=== PATIENT | female | born 1985 | race Caucasian/White ===

== ENCOUNTER 2016-05-01 20:13 | Emergency (ER) | payer OTHER ==
[2016-05-01] MEDS ORDERED: Ketorolac INJ* 60 MG/2 ML VIAL IM ONE (20:39)
[2016-05-01 20:53] LABS: Hematocrit 42 % (35-47); Hemoglobin 14.3 g/dl (12.0-16.0); Mean Corpuscular HGB Conc 34 g/dl (31-36); Mean Corpuscular Hemoglobin 30 pg (27-31); Mean Corpuscular Volume 89 fL (80-97); Mean Platelet Volume 8 um3 (7.4-10.4); Red Blood Count 4.72 10^6/ul (4.0-5.4); Red Cell Distribution Width 13 % (10.5-15); White Blood Count 6.7 10^3/ul (3.5-10.8)
--- NOTE | 2016-05-01 21:02 | ED ---
Papo Tay SooYoung, scribed for Keshawn Aguilar MD on 05/01/16 at 2036 . Shortness of Breath - HPI Summary HPI Summary: A 31 y/o F presents to ED with c/o intermittent episodes of R-sided CP onset last night. Pt cannot recall number of episodes, but says they last a few minutes each. Pain radiates across back and in-between shoulder blades. Radiating pain described as tightness. Aggravating factors: deep breaths. She notes having had similar sx in the past: she collapsed at work and was admitted to hospital for three days. Her PCP says her blood pressure is high, but has not provided medication. Took aspirin today. NKA. Pt is a smoker. - History of Current Complaint Chief Complaint: EDShortnessOfBreath Time Seen by Provider: 05/01/16 20:29 Hx Obtained From: Patient Onset/Duration: Still Present Timing: Intermittent Episodes Lasting: - minutes Current Severity: Moderate - rates as 6 out of 10 Aggrevating Factors: Deep Breaths - Allergy/Home Medications Allergies/Adverse Reactions: Allergies Allergy/AdvReac Type Severity Reaction Status Date / Time No Known Allergies Allergy Verified 09/19/14 19:53 PMH/Surg Hx/FS Hx/Imm Hx Previously Healthy: No Cardiovascular History: Reports: Hx Hypertension, Other Cardiovascular Problems/ Disorders - pos: MVP - Surgical History Surgery Procedure, Year, and Place: Infectious Disease History: No Infectious Disease History: Denies: Traveled Outside the [place] in Last 30 Days - Family History Known Family History: Negative: Cardiac Disease, Hypertension, Diabetes - Social History Occupation: Unemployed Lives: With Family Alcohol Use: Occasionally Hx Substance Use: Yes Substance Use Type: Reports: Marijuana, Other Substance Use Comment - Amount & Last Used: HAS USED BATH SALTS Hx Tobacco Use: Yes Smoking Status (MU): Heavy Every Day Tobacco Smoker Type: Cigarettes Amount Used/How Often: 1 PPD Review of Systems Negative: Fever Positive: Chest Pain Positive: Other - tightness across back, at shoulders All Other Systems Reviewed And Are Negative: Yes Physical Exam Triage Information Reviewed: Yes Vital Signs On Initial Exam: Initial Vitals Temp Pulse Resp BP Pulse Ox 97.8 F 87 18 138/94 100 05/01/16 20:16 05/01/16 20:16 05/01/16 20:16 05/01/16 20:16 05/01/16 20:16 Vital Signs Reviewed: Yes Appearance: Positive: Well-Appearing, No Pain Distress, Well-Nourished Skin: Positive: Warm Eyes: Positive: EOMI, SHANA ENT: Positive: Hearing grossly normal Neck: Positive: Supple Respiratory/Lung Sounds: Positive: Clear to Auscultation, Breath Sounds Present Cardiovascular: Positive: RRR. Negative: Murmur Abdomen Description: Positive: Nontender, Soft Bowel Sounds: Positive: Present Musculoskeletal: Positive: Strength/ROM Intact Neurological: Positive: Sensory/Motor Intact, Alert, Oriented to Person Place, Time Diagnostics - Vital Signs Vital Signs Temp Pulse Resp BP Pulse Ox 05/01/16 20:16 97.8 F 87 18 138/94 100 - Laboratory Lab Results: Lab Results 05/01/16 Range/Units 20:46 WBC 6.7 (3.5-10.8) 10^3/ul RBC 4.72 (4.0-5.4) 10^6/ul Hgb 14.3 (12.0-16.0) g/dl Hct 42 (35-47) % MCV 89 (80-97) fL MCH 30 (27-31) pg MCHC 34 (31-36) g/dl RDW 13 (10.5-15) % Plt Count 216 (150-450) 10^3/ul MPV 8 (7.4-10.4) um3 Neut % (Auto) 53.3 (38-83) % Lymph % (Auto) 33.8 (25-47) % [place] % (Auto) 9.8 H (1-9) % Eos % (Auto) 1.8 (0-6) % Baso % (Auto) 1.3 (0-2) % Absolute Neuts (auto) 3.6 (1.5-7.7) 10^3/ul Absolute Lymphs (auto) 2.3 (1.0-4.8) 10^3/ul Absolute Monos (auto) 0.7 (0-0.8) 10^3/ul Absolute Eos (auto) 0.1 (0-0.6) 10^3/ul Absolute Basos (auto) 0.1 (0-0.2) 10^3/ul Absolute Nucleated RBC 0 10^3/ul Nucleated RBC % 0 Result Diagrams: 05/01/16 20:46 05/01/16 20:46 Lab Statement: Any lab studies that have been ordered have been reviewed, and results considered in the medical decision making process. - Radiology CXR Xray Interpretation: No Acute Changes - IMPRESSION: No evidence for active cardiopulmonary disease. Radiology Interpretation Completed By: Radiologist - EKG 2033 Cardiac Rate: NL EKG Rhythm: Sinus Rhythm Re-Evaluation - Re-Evaluation 1 Re-Evaluation Time: 22:54 Change: Improved Course/Dx - Course Assessment/Plan: MDM: A 31 y/o F presents with intermittent episodes of chest pain, lasting minutes, first onset last night. Aggravating factors include deep breaths. Pt is a smoker. Pain radiates to back and across shoulders. Bedside EKG showed NSR. Pt given Toradol. CXR had no acute findings. Pt felt better upon re-eval. Will D/C home. - Diagnoses Provider Diagnoses: Viral syndrome Discharge - Discharge Plan Condition: Stable Disposition: HOME Patient Education Materials: Viral Syndrome (ED) Referrals: Non Staff,Doctor [Primary Care Provider] - [facility] [place] PHYSICIAN REFERRAL [Outside] Additional Instructions: Please return to ED with new or worsening symptoms. Maintain your health with rest, plenty of fluids and Tylenol as needed. Follow-up with your primary care provided as needed. The documentation as recorded by the Papo montaño SooYoung accurately reflects the service I personally performed and the decisions made by me, Keshawn Aguilar MD.
[2016-05-01 21:09] LABS: Anion Gap 5 mmol/L (2-11); BUN/Creatinine Ratio 22.4 (8-20); Blood Urea Nitrogen 15 mg/dL (6-24); CO2 Carbon Dioxide 26 mmol/L (22-32); Calcium 9.6 mg/dL (8.6-10.3); Chloride 106 mmol/L (101-111); EGFR African American 132.9 (>60); EGFR Non-African American 103.3 (>60); Glucose 86 mg/dL (70-100); Potassium 3.9 mmol/L (3.5-5.0); Sodium 137 mmol/L (133-145)
[2016-05-01] MEDS ORDERED: Ketorolac INJ* 30 MG/ML 1 ML VIAL IV PUSH ONE (21:13)
--- NOTE | 2016-05-01 21:45 | RAD ---
INDICATION: Chest pain. COMPARISON: Comparison is made with a prior study from April 20, 2014. TECHNIQUE: Dual-energy PA and lateral views of the chest were obtained. FINDINGS: The heart is within normal limits in size. Mediastinal and hilar contours appear within normal limits. The lungs are clear. No pneumothorax or pleural effusion is seen. IMPRESSION: NO EVIDENCE FOR ACTIVE CARDIOPULMONARY DISEASE.
[2016-05-01 23:22] VITALS: BP 123/65
== END 2016-05-01 23:15 | disposition home or self-care (01) ==
LOC: ED 20:13
DX: B34.9 Viral infection, unspecified (principal); F17.210 Nicotine dependence, cigarettes, uncomplicated
CPT/HCPCS: 36415; 71020; 80048; 84702; 85025; 93005; 96372; 96374; 99283; J1885

== ENCOUNTER 2017-03-26 23:28 | Emergency (ER) | payer OTHER ==
[2017-03-26] MEDS ORDERED: Albuterol/Ipratropium NEB.SOL* Albuterol 2.5 MG/Ipratropium 0.5 MG 3 ML INH ONE (23:52)
[2017-03-27 00:13] LABS: ABS Basophils 0.1 10^3/ul (0-0.2); ABS Eosinophils 0.1 10^3/ul (0-0.6); ABS Lymphocytes 2.3 10^3/ul (1.0-4.8); ABS Monocytes 0.7 10^3/ul (0-0.8); ABS Neutrophils 4.1 10^3/ul (1.5-7.7); ABS Nucleated RBC 0 10^3/ul; Hematocrit 39 % (35-47); Hemoglobin 13.3 g/dl (12.0-16.0); Lymphocyte % 31.1 % (25-47); Mean Corpuscular HGB Conc 34 g/dl (31-36); Mean Corpuscular Hemoglobin 31 pg (27-31); Mean Corpuscular Volume 91 fL (80-97); Mean Platelet Volume 7 um3 (7.4-10.4); Nucleated Red Blood Cells % 0; Platelet Count 222 10^3/ul (150-450); Red Blood Count 4.26 10^6/ul (4.0-5.4); Red Cell Distribution Width 14 % (10.5-15); White Blood Count 7.3 10^3/ul (3.5-10.8)
[2017-03-27 00:34] LABS: EGFR Non-African American 93.6 (>60)
[2017-03-27 00:42] LABS: INR 0.94 (0.77-1.02)
[2017-03-27] MEDS ORDERED: Albuterol/Ipratropium NEB.SOL* Albuterol 2.5 MG/Ipratropium 0.5 MG 3 ML INH ONE (01:03)
[2017-03-27] MEDS ORDERED: predniSONE TAB* 20 MG PO ONE (01:03)
--- NOTE | 2017-03-27 04:25 | ED ---
Teresa Tay Gabriel, scribed for Frank Mesa on 03/26/17 at 2356 . HPI Chest Pain - HPI Summary HPI Summary: This patient is a 31 year old F presenting to [facility] with a chief complaint of CP since 6 days ago. The patient rates the pain 7/10 in severity and describes it as tightness. She states the pain radiates into her upper back and down both arms. Patient denies productive cough. Patient has a history of a sticky heart valve. - History of Current Complaint Chief Complaint: EDChestWallPain Time Seen by Provider: 03/26/17 23:48 Hx Obtained From: Patient Hx Last Menstrual Period: 2 WEEKS AGO Onset/Duration: Started Days Ago - 6, Still Present Timing: Intermittent Initial Severity: Mild Current Severity: Mild Pain Intensity: 7 Pain Scale Used: 0-10 Numeric Chest Pain Location: Mid Sternal Chest Pain Radiates: Yes Chest Pain Radiates To:: Back, Arm - bilateral Character: Tightness Aggravating Factor(s): Nothing Alleviating Factor(s): Nothing - Allergy/Home Medications Allergies/Adverse Reactions: Allergies Allergy/AdvReac Type Severity Reaction Status Date / Time No Known Allergies Allergy Verified 09/19/14 19:53 PMH/Surg Hx/FS Hx/Imm Hx Endocrine/Hematology History: Denies: Hx Diabetes Cardiovascular History: Reports: Hx Hypertension, Other Cardiovascular Problems/ Disorders - pos: MVP Respiratory History: Denies: Hx Asthma, Hx Chronic Obstructive Pulmonary Disease (COPD) - Surgical History Surgery Procedure, Year, and Place: Infectious Disease History: No Infectious Disease History: Denies: Traveled Outside the [place] in Last 30 Days - Family History Known Family History: Negative: Cardiac Disease, Hypertension, Diabetes - Social History Alcohol Use: Occasionally Hx Substance Use: Yes Substance Use Type: Reports: Marijuana, Other Substance Use Comment - Amount & Last Used: HAS USED BATH SALTS Hx Tobacco Use: Yes Smoking Status (MU): Heavy Every Day Tobacco Smoker Type: Cigarettes Amount Used/How Often: 1 PPD Review of Systems Positive: Chest Pain Negative: Cough Positive: Other - pain in upper back and down both arms All Other Systems Reviewed And Are Negative: Yes Physical Exam - Summary Physical Exam Summary: Appearance: Well appearing, no pain distress Skin: warm, dry, reflects adequate perfusion Head/face: normal Eyes: EOMI, SHANA ENT: normal Neck: supple, non-tender Respiratory: CTA, breath sounds present Cardiovascular: RRR, pulses symmetrical Abdomen: non-tender, soft Bowel: present Musculoskeletal: normal, strength/ROM intact Neuro: normal, sensory motor intact, A&Ox3 Triage Information Reviewed: Yes Vital Signs On Initial Exam: Initial Vitals Temp Pulse Resp BP Pulse Ox 97.0 F 86 16 133/83 100 03/26/17 23:30 03/26/17 23:30 03/26/17 23:30 03/26/17 23:30 03/26/17 23:30 Vital Signs Reviewed: Yes Diagnostics - Vital Signs Vital Signs Temp Pulse Resp BP Pulse Ox 03/26/17 23:30 97.0 F 86 16 133/83 100 - Laboratory Lab Results: Lab Results 03/27/17 03/27/17 03/27/17 Range/Units 00:04 00:04 00:04 WBC 7.3 (3.5-10.8) 10^3/ul RBC 4.26 (4.0-5.4) 10^6/ul Hgb 13.3 (12.0-16.0) g/dl Hct 39 (35-47) % MCV 91 (80-97) fL MCH 31 (27-31) pg MCHC 34 (31-36) g/dl RDW 14 (10.5-15) % Plt Count 222 (150-450) 10^3/ul MPV 7 L (7.4-10.4) um3 Neut % (Auto) 56.7 (38-83) % Lymph % (Auto) 31.1 (25-47) % [place] % (Auto) 9.4 H (1-9) % Eos % (Auto) 2.0 (0-6) % Baso % (Auto) 0.8 (0-2) % Absolute Neuts (auto) 4.1 (1.5-7.7) 10^3/ul Absolute Lymphs (auto) 2.3 (1.0-4.8) 10^3/ul Absolute Monos (auto) 0.7 (0-0.8) 10^3/ul Absolute Eos (auto) 0.1 (0-0.6) 10^3/ul Absolute Basos (auto) 0.1 (0-0.2) 10^3/ul Absolute Nucleated RBC 0 10^3/ul Nucleated RBC % 0 INR (Anticoag Therapy) 0.94 (0.77-1.02) APTT 34.5 (26.0-36.3) seconds D-Dimer, Quantitative < 200 (Less Than 230) ng/mL Sodium (133-145) mmol/L Potassium (3.5-5.0) mmol/L Chloride (101-111) mmol/L Carbon Dioxide (22-32) mmol/L Anion Gap (2-11) mmol/L BUN (6-24) mg/dL Creatinine (0.51-0.95) mg/dL Est GFR ( Amer) (>60) Est GFR (Non-Af Amer) (>60) BUN/Creatinine Ratio (8-20) Glucose (70-100) mg/dL Calcium (8.6-10.3) mg/dL Total Bilirubin (0.2-1.0) mg/dL AST (13-39) U/L ALT (7-52) U/L Alkaline Phosphatase (34-104) U/L Troponin I (<0.04) ng/mL B-Natriuretic Peptide 14 ( - 100) pg/mL Total Protein (6.4-8.9) g/dL Albumin (3.2-5.2) g/dL Globulin (2-4) g/dL Albumin/Globulin Ratio (1-3) Beta HCG, Quant mIU/mL 03/27/17 03/27/17 Range/Units 00:04 03:15 WBC (3.5-10.8) 10^3/ul RBC (4.0-5.4) 10^6/ul Hgb (12.0-16.0) g/dl Hct (35-47) % MCV (80-97) fL MCH (27-31) pg MCHC (31-36) g/dl RDW (10.5-15) % Plt Count (150-450) 10^3/ul MPV (7.4-10.4) um3 Neut % (Auto) (38-83) % Lymph % (Auto) (25-47) % [place] % (Auto) (1-9) % Eos % (Auto) (0-6) % Baso % (Auto) (0-2) % Absolute Neuts (auto) (1.5-7.7) 10^3/ul Absolute Lymphs (auto) (1.0-4.8) 10^3/ul Absolute Monos (auto) (0-0.8) 10^3/ul Absolute Eos (auto) (0-0.6) 10^3/ul Absolute Basos (auto) (0-0.2) 10^3/ul Absolute Nucleated RBC 10^3/ul Nucleated RBC % INR (Anticoag Therapy) (0.77-1.02) APTT (26.0-36.3) seconds D-Dimer, Quantitative (Less Than 230) ng/mL Sodium 137 (133-145) mmol/L Potassium 3.5 (3.5-5.0) mmol/L Chloride 106 (101-111) mmol/L Carbon Dioxide 24 (22-32) mmol/L Anion Gap 7 (2-11) mmol/L BUN 13 (6-24) mg/dL Creatinine 0.73 (0.51-0.95) mg/dL Est GFR ( Amer) 120.4 (>60) Est GFR (Non-Af Amer) 93.6 (>60) BUN/Creatinine Ratio 17.8 (8-20) Glucose 84 (70-100) mg/dL Calcium 9.1 (8.6-10.3) mg/dL Total Bilirubin 0.30 (0.2-1.0) mg/dL AST 9 L (13-39) U/L ALT 11 (7-52) U/L Alkaline Phosphatase 40 (34-104) U/L Troponin I 0.00 0.00 (<0.04) ng/mL B-Natriuretic Peptide ( - 100) pg/mL Total Protein 6.4 (6.4-8.9) g/dL Albumin 4.2 (3.2-5.2) g/dL Globulin 2.2 (2-4) g/dL Albumin/Globulin Ratio 1.9 (1-3) Beta HCG, Quant < 0.60 mIU/mL Result Diagrams: 03/27/17 00:04 03/27/17 00:04 Lab Statement: Any lab studies that have been ordered have been reviewed, and results considered in the medical decision making process. - Radiology CXR Radiology Interpretation Completed By: Radiologist - no acute disease - EKG 00:20 Cardiac Rate: Tachycardia EKG Rhythm: Sinus Tachycardia - at 108 BPM EKG Interpretation: non- specific ST/T wave changes Chest Pain Course/Dx - Course Assessment/Plan: This patient is a 31 year old F presenting to [facility] with a chief complaint of CP since 6 days ago. The patient rates the pain 7/10 in severity and describes it as tightness. She states the pain radiates into her upper back and down both arms. CXR reveals, no acute disease. Bloodwork was obtained. In the ED course the patient was given duoneb and deltasone. Patient will be discharged and follow up from Dr. Santana. The patient is agreeable with this plan. - Chest Pain Differential Diagnosis/HQI/PQRI: Acute WA, CHF, Lower Respiratory Infection, Other: - anxeity reaction - Diagnoses Provider Diagnoses: Atypical chest pain, Bronchospasm Discharge - Discharge Plan Condition: Stable Disposition: HOME Prescriptions: Albuterol HFA INHALER* [Ventolin HFA Inhaler*] 2 puff INH TID #1 mdi Prednisone [Deltasone] 40 mg PO ONCE #4 tab Patient Education Materials: Chest Pain (ED) Referrals: Non Staff,Doctor [Primary Care Provider] - Hazel Santana MD [Medical Doctor] - 3 Days Additional Instructions: RETURN TO THE EMERGENCY DEPARTMENT FOR CHANGING OR WORSENING SYMPTOMS The documentation as recorded by the Teresa montaño Gabriel accurately reflects the service I personally performed and the decisions made by Moshe garcia Emmanuel.
[2017-03-27 04:30] VITALS: BP 102/59
--- NOTE | 2017-03-27 10:33 | RAD ---
INDICATION: Chest pain and tightness x6 days COMPARISON: Most recent comparison chest x-ray is dated May 01, 2016 TECHNIQUE: Single AP portable view of the chest was obtained. FINDINGS: Image quality is compromised due to the relative inferiority of a portable chest x-ray. The heart and mediastinum exhibit normal size and contour. The lungs are grossly clear. There is no evidence of a large pleural effusion. Visualized bones are normal for the patient's age. IMPRESSION: No radiographic evidence for acute cardiopulmonary abnormality on this portable chest x-ray.
== END 2017-03-27 04:32 | disposition home or self-care (01) ==
LOC: ED 23:28
DX: R07.89 Other chest pain (principal); J98.01 Acute bronchospasm; Z86.79 Personal history of other diseases of the circulatory system; F17.210 Nicotine dependence, cigarettes, uncomplicated
CPT/HCPCS: 36415; 71010; 80053; 83880; 84484; 84702; 85025; 85379; 85610; 85730; 93005; 94640; 99283; A9270-GY; J7512

== ENCOUNTER 2017-04-21 07:29 | Emergency (ER) | payer OTHER ==
[2017-04-21 07:42] VITALS: BP 127/79
--- NOTE | 2017-04-21 08:03 | UC ---
Dizzy HPI HPI Summary: Starting today she has had a feeling of imbalance and nausea. No weakness or worsening palpitations. She is on clindamycin for dental infection and this seems to be getting better in terms of pain. She had right neck pain and trouble moving her head and this has resolved. No fever or chills. She has been on clindamycin before without side effects. - History Of Current Complaint Chief Complaint: UCGeneralIllness Stated Complaint: DIZZY,NAUSEA,PALE Time Seen by Provider: 04/21/17 07:48 Hx Obtained From: Patient Hx Last Menstrual Period: 03/29/17 ?: No - LMP within 30 days. Onset/Duration: Gradual Onset, Lasting Hours Timing: Constant Severity Initially: Mild Severity Currently: Mild Pain Intensity: 0 Character: Room Spinning, Dizzy Aggravating Factor(s): Nothing Alleviating Factor(s): Nothing Associated Signs And Symptoms: Positive: Nausea. Negative: Palpitations - she has chronic intemittent palptiations but this is not worse than normal. - Allergies/Home Medications Allergies/Adverse Reactions: Allergies Allergy/AdvReac Type Severity Reaction Status Date / Time No Known Allergies Allergy Verified 04/21/17 07:42 PMH/Surg Hx/FS Hx/Imm Hx Previously Healthy: No - dental infection. - Surgical History Surgical History: Yes Surgery Procedure, Year, and Place: - Family History Known Family History: Negative: Cardiac Disease, Hypertension, Diabetes - Social History Occupation: Employed Full-time Alcohol Use: Occasionally Substance Use Type: Marijuana, Other Substance Use Comment - Amount & Last Used: HAS USED BATH SALTS Smoking Status (MU): Heavy Every Day Tobacco Smoker Type: Cigarettes Amount Used/How Often: 1 PPD Household Exposure Type: Cigarettes Review of Systems Gastrointestinal: Nausea Neurological: Other All Other Systems Reviewed And Are Negative: Yes Physical Exam Triage Information Reviewed: Yes Appearance: Well-Appearing, No Pain Distress, Well-Nourished Vital Signs: Initial Vital Signs Temp 98.5 F 04/21/17 07:35 Pulse 87 04/21/17 07:35 Resp 18 04/21/17 07:35 BP 127/79 04/21/17 07:35 Pulse Ox 100 04/21/17 07:35 Vital Signs Reviewed: Yes Eyes: Positive: Conjunctiva Clear ENT: Positive: Normal ENT inspection, Pharynx normal, Nasal congestion, TMs normal, Uvula midline. Negative: TM bulging, TM dull, TM red, Tonsillar swelling, Tonsillar exudate, Trismus Neck: Positive: Supple, Nontender, No Lymphadenopathy Respiratory: Positive: Lungs clear, Normal breath sounds, No respiratory distress, No accessory muscle use Cardiovascular: Positive: No Murmur, Pulses Normal, Brisk Capillary Refill Abdomen Description: Positive: Soft. Negative: Distended, Guarding Musculoskeletal: Positive: ROM Intact, No Edema Neurological: Positive: Alert, Muscle Tone Normal, Other: - She ambulates with narrow based coordinated gait and no nystagmus.. Negative: Fatigued, Lethargic Psychological: Positive: Age Appropriate Behavior Skin: Negative: rashes Dizzy Course/Dx - Differential Dx/Diagnosis Provider Diagnoses: vertigo Discharge - Discharge Plan Condition: Good Disposition: HOME Prescriptions: Meclizine HCl [Meclizine 25] 25 mg PO TID PRN #21 tab PRN Reason: Dizziness Ondansetron TAB* [Zofran 4 MG Tab*] 4 mg PO Q6H PRN #12 tab PRN Reason: Nausea Patient Education Materials: Vertigo (ED), Motion Sickness (ED), Dizziness (ED) Forms: *Work Release Referrals: Non Staff,Doctor [Primary Care Provider] -
== END 2017-04-21 08:00 | disposition home or self-care (01) ==
LOC: UCCORT 07:29
DX: R42 Dizziness and giddiness (principal); R11.0 Nausea; K04.7 Periapical abscess without sinus; F12.90 Cannabis use, unspecified, uncomplicated; F17.210 Nicotine dependence, cigarettes, uncomplicated
CPT/HCPCS: 99212; G0463

== ENCOUNTER 2017-11-04 11:52 | Emergency (ER) | payer OTHER ==
--- NOTE | 2017-11-04 12:31 | UC ---
Nausea/Vomiting/Diarrhea HPI - HPI Summary HPI Summary: pt presents with with same sx. Pt ate left over chicken a t8pm last night night. woke at3am with n/v/d. Pt had 5-6 episodes of diarrhea -no blood, no black. Pt had 4 episodes of vomiting - nonbilious - last episode [employer]. pt with abdominal cramping. No fever, chills. No rash. No caro, vision changes. No concern for . Pt missed work today. Pt's medications reviewed this visit - History of Current Complaint Stated Complaint: VOMITING,STOMACH ACHE Time Seen by Provider: 11/04/17 12:26 Hx Obtained From: Patient Hx Last Menstrual Period: yesterday ?: No Onset/Duration: Sudden Onset - Allergies/Home Medications Allergies/Adverse Reactions: Allergies Allergy/AdvReac Type Severity Reaction Status Date / Time No Known Allergies Allergy Verified 11/04/17 12:33 PMH/Surg Hx/FS Hx/Imm Hx Previously Healthy: Yes - Surgical History Surgical History: Yes Surgery Procedure, Year, and Place: - Family History Known Family History: Negative: Cardiac Disease, Hypertension, Diabetes - Social History Occupation: Employed Full-time Lives: With Family Alcohol Use: Daily Alcohol Amount: 1/4 bottle vodka daily Substance Use Type: None Substance Use Comment - Amount & Last Used: HAS USED BATH SALTS Smoking Status (MU): Heavy Every Day Tobacco Smoker Type: Cigarettes Amount Used/How Often: 1 PPD Household Exposure Type: Cigarettes - Immunization History Vaccination Up to Date: Yes Review of Systems Constitutional: Negative Gastrointestinal: Abdominal Pain, Vomiting, Diarrhea, Nausea All Other Systems Reviewed And Are Negative: Yes Physical Exam - Summary Physical Exam Summary: Vital Signs Reviewed: Yes A+Ox3, no distress, tired appearing Eyes: Conjunctiva Clear, SHANA. EOM intact and full ENT: Hearing grossly normal TM x 2 clear, mmoist, uvula midline, no exudate, no erythema Neck: Positive: Supple Respiratory: Positive: No respiratory distress, No accessory muscle use + CTA throughout no w/r Cardiovascular: RRR nl s1, s2 no m/r CBT <2 sec abd soft + BS nd no guarding, no distension, mild diffuse discomfort no guarding, no reboud Musculoskeletal Exam: CRAIG x 4 without difficulty Strength Intact, ROM Intact Neurological: Positive: Alert, + sensation throughout Psychological: Positive: Normal Response To Family Skin: Positive: no rash, no ecchymosis Triage Information Reviewed: Yes Naus/Vom/Diarrhea Course/Dx - Course Course Of Treatment: Pt presets wth n/v/d since 3am - starting 5 hours after eating left over chicken. with same sx Pt vss, non toxic apeparing. will trial zofran and clears. clear to bland. work note. return precautions - Differential Dx/Diagnosis Provider Diagnoses: nause, vomiting and diarrhea Condition At Discharge: Stable Discharge - Sign-Out/Discharge Documenting (check all that apply): Patient Departure - Discharge Plan Condition: Stable Disposition: HOME Patient Education Materials: Acute Nausea and Vomiting (ED), Acute Diarrhea (ED ) Forms: *Gen. Provider Communication, *Work Release Referrals: [facility] [place] [facility] REFERR[facility] [Outside] No Primary Care Phys,NOPCP [Primary Care Provider] - Additional Instructions: - Take medication as needed for nausea - For the first 6 hours, eat and drink clears (water, glen fidel, soup broth, jello, popsicles, Gatorade). If you tolerate this okay, add bland foods such as dry toast, scrambled eggs, crackers. Wait until you are feeling better for 24 hours before eating spicy food, acidic food, tomato based food, fried food. -Okay to take tylenol every 6 hours for pain - get plenty of restful sleep - you may try applying a heating pad to your abdominal muscles - If you develop uncontrolled vomiting, fevers or pain it is recommended you go to the emergency department for further evaluation - Billing Disposition and Condition Condition: STABLE Disposition: Home
[2017-11-04 12:33] VITALS: BP 113/70
[2017-11-04] MEDS ORDERED: Ondansetron ODT TAB* 4 MG PO ONE (12:56)
== END 2017-11-04 13:26 | disposition home or self-care (01) ==
LOC: UCCORT 11:52
DX: R11.2 Nausea with vomiting, unspecified (principal); R19.7 Diarrhea, unspecified; F17.210 Nicotine dependence, cigarettes, uncomplicated
CPT/HCPCS: 99212; A9270-GY; G0463